=== PATIENT | female | born 1985 | race American Indian/Alaskan Native ===

== ENCOUNTER 2017-08-09 12:20 | Emergency (ER) | payer SELFPAY | END 2017-08-09 12:21 | disposition left against medical advice (07) | LOC: ED 12:20 | DX: R20.0 Anesthesia of skin (principal); Z53.21 Procedure and treatment not carried out due to patient leaving prior to being seen by health care provider ==

== ENCOUNTER 2018-11-02 21:16 | Emergency (ER) | payer MEDICAID ==
--- NOTE | 2018-11-02 21:47 | Event Note ---
ED Screening Note Date of service: 11/02/18 Time: 21:43 ED Screening Note: 33 y/o female come for N/V times 3 days. Pain in left lower abd LMP unsure. Ab3. This initial assessment/diagnostic orders/clinical plan/treatment(s) is/are subject to change based on patients health status, clinical progression and re- assessment by fellow clinical providers in the ED. Further treatment and workup at subsequent clinical providers discretion. Patient/guardian urged not to elope from the ED as their condition may be serious if not clinically assessed and managed. Initial orders include:
[2018-11-02] MEDS ORDERED: ZOFRAN ODT PO ONE (22:39)
[2018-11-02] MEDS ORDERED: IBUPROFEN PO ONE (22:39)
[2018-11-02 22:42] LABS: Bacteria,Urine 2+ /HPF (Negative); Bilirubin,Urine NEG (Negative); Blood,Urine LG (Negative); Color,Urine Yellow (Yellow); Mucus,Urine 3+ /HPF; Protein,Urine <15 mg/dL mg/dL (Negative); Urobilinogen,Urine < 2.0 mg/dL (<2.0)
--- NOTE | 2018-11-02 22:48 | Emergency Department Report ---
ED General Adult HPI - General Chief complaint: Abdominal Pain Stated complaint: N/V, LT ARM AND LEG NUMBNESS,FAINT Time Seen by Provider: 11/02/18 22:33 Source: patient Mode of arrival: Ambulatory Limitations: No Limitations - History of Present Illness Initial comments: Chiara is a very pleasant patient with multiple concerns. She is a healthy 33-year-old female who has had "paresthesias" since age 18. She was seen by several physicians including a neurologist. She was prescribed Neurontin for the symptoms age 19. However she stopped taking the medication due to involuntary movement. 2 years ago at age 31 the paresthesias returned. No fam nahed history of similar symptoms. For the past 3 days she's had nausea and vomiting. She also has had mild left lower quadrant pain. No vaginal bleeding. No fever. She did miss her menstrual cycle last month. She is followed at [facility]. Her last physical exam occurred 2 3 years ago. -: Gradual, days(s) (3), year(s) (2) Location: abdomen, left, right, upper extremity, lower extremity Consistency: intermittent, now resolved Improves with: none Worsens with: none Associated Symptoms: denies other symptoms - Related Data Previous Rx's Medication Instructions Recorded Last Taken Type Promethazine [Phenergan] 25 mg PO Q6HR PRN #10 tab 11/02/18 Unknown Rx Allergies Allergy/AdvReac Type Severity Reaction Status Date / Time methylprednisolone Allergy Unknown Verified 11/02/18 21:44 ED Review of Systems ROS: Stated complaint: N/V, LT ARM AND LEG NUMBNESS,FAINT Other details as noted in HPI Comment: All other systems reviewed and negative Constitutional: denies: fever, malaise Respiratory: denies: cough Cardiovascular: denies: chest pain ED Past Medical Hx - Past Medical History Previous Medical History?: Yes Hx Asthma: Yes - Surgical History Past Surgical History?: Yes Additional Surgical History: x4, 1 etopic - Family History Family history: hypertension, other (thyroid disease) - Social History Smoking Status: Never Smoker Substance Use Type: Alcohol, Marijuana - Medications Home Medications: Home Medications Medication Instructions Recorded Confirmed Last Taken Type Promethazine [Phenergan] 25 mg PO Q6HR PRN #10 tab 11/02/18 Unknown Rx ED Physical Exam - General Limitations: No Limitations General appearance: alert, in no apparent distress - Head Head exam: Present: atraumatic, normocephalic - Eye Eye exam: Present: normal appearance. Absent: scleral icterus, conjunctival injection - ENT ENT exam: Present: mucous membranes moist - Neck Neck exam: Present: normal inspection, full ROM - Respiratory Respiratory exam: Present: normal lung sounds bilaterally. Absent: respiratory distress, wheezes, rales, rhonchi - Cardiovascular Cardiovascular Exam: Present: regular rate, normal rhythm, normal heart sounds. Absent: systolic murmur, diastolic murmur, rubs, gallop - GI/Abdominal GI/Abdominal exam: Present: soft, normal bowel sounds. Absent: distended, tenderness, guarding, rebound - Extremities Exam Extremities exam: Present: normal inspection - Back Exam Back exam: Present: normal inspection - Neurological Exam Neurological exam: Present: alert, oriented X3, CN II-XII intact, normal gait. Absent: motor sensory deficit - Expanded Neurological Exam Expanded Patient oriented to: Present: person, place, time Speech: Present: fluid speech Cranial nerves: EOM's Intact: Normal, Gag Reflex: Normal Cerebellar function: Finger to Nose: Normal, Heel to [place]: Normal Upper motor neuron: [place] Neglect: Normal, Pronator Drift: Normal Sensory exam: Upper Extremity Light Touch: Normal Motor strength exam: RUE: 5, LUE: 5, RLE: 5, LLE: 5 Best Eye Response (Behzad): (4) open spontaneously Best Motor Response ([place]): (6) obeys commands Best Verbal Response ([place]): (5) oriented Behzad Total: 15 - Psychiatric Psychiatric exam: Present: normal affect, normal mood - Skin Skin exam: Present: warm, dry, intact, normal color. Absent: rash ED Course Vital Signs 11/02/18 21:43 Temperature 98.3 F Pulse Rate 98 H Respiratory 20 Rate Blood Pressure 115/47 O2 Sat by Pulse 98 Oximetry ED Medical Decision Making - Lab Data Result diagrams: 11/02/18 22:17 11/02/18 22:17 Laboratory Results - last 24 hr 11/02/18 11/02/18 11/02/18 21:56 22:17 22:17 WBC 8.6 RBC 3.33 L Hgb 11.4 Hct 33.2 MCV 100 H MCH 34 H MCHC 34 RDW 13.7 Plt Count 383 Lymph % (Auto) 32.6 [place] % (Auto) 7.1 Eos % (Auto) 0.5 Baso % (Auto) 0.6 Lymph # 2.8 [place] # 0.6 Eos # 0.0 Baso # 0.1 Seg Neutrophils % 59.2 Seg Neutrophils # 5.1 Sodium 136 L Potassium 3.8 Chloride 104.6 Carbon Dioxide 20 L Anion Gap 15 BUN 13 Creatinine 1.0 Estimated GFR > 60 BUN/Creatinine Ratio 13 Glucose 102 H Calcium 9.3 Total Bilirubin 0.20 AST 15 ALT 7 Alkaline Phosphatase 47 Total Protein 7.1 Albumin 4.1 Albumin/Globulin Ratio 1.4 Urine Color Yellow Urine Turbidity Cloudy Urine pH 6.0 Ur Specific [place] 1.026 Urine Protein <15 mg/dl Urine Glucose (UA) Neg Urine Ketones Tr Urine Blood Lg Urine Nitrite Pos Urine Bilirubin Neg Urine Urobilinogen < 2.0 Ur Leukocyte Esterase Tr Urine WBC (Auto) 14.0 H Urine RBC (Auto) 35.0 U Epithel Cells (Auto) 8.0 Urine Bacteria (Auto) 2+ Urine Mucus 3+ - Medical Decision Making 1. Paresthesias intermittently for the past 14+ years. Concern for metabolic versus connective tissue disease. Recommended evaluation by [facility] possible [facility]ological consultation referral. 2. Quadrant abdominal pain possible ovarian cysts no evidence of peritonitis. I do not suspect ovarian torsion. Serum test negative. 3. 3 days of nausea vomiting without active vomiting or nausea. No indication of severe emergent condition. Possible related to marijuana use. CBC chemistry was normal limits. Urinalysis contaminated. Patient does not have UTI symptoms. Given reassurance discharged home. Critical care attestation.: If time is entered above; I have spent that time in minutes in the direct care of this critically ill patient, excluding procedure time. ED Disposition Clinical Impression: Paresthesias, Acute abdominal pain, Nausea & vomiting Disposition: - TO HOME OR SELFCARE Is pt being admited?: No Does the pt Need Aspirin: No Condition: Stable Instructions: Abdominal Pain (ED) Prescriptions: Promethazine [Phenergan] 25 mg PO Q6HR PRN #10 tab PRN Reason: Nausea Referrals: ALEX MADISON MD [Primary Care Provider] - 3-5 Days Forms: Work/School Release Form(ED)
[2018-11-02 22:55] LABS: Basophils # (Auto) 0.1 K/mm3 (0.0-0.1); Basophils % (Auto) 0.6 % (0.0-1.8); Eosinophils % (Auto) 0.5 % (0.0-4.3); Hematocrit 33.2 % (30.3-42.9); Hemoglobin 11.4 gm/dl (10.1-14.3); Lymphocytes # (Auto) 2.8 K/mm3 (1.2-5.4); Lymphocytes % (Auto) 32.6 % (13.4-35.0); Mean Corpuscular HGB Conc 34 % (30-34); Mean Corpuscular Volume 100 fl (79-97); Monocytes # (Auto) 0.6 K/mm3 (0.0-0.8); Monocytes % (Auto) 7.1 % (0.0-7.3); Platelet Count 383 K/mm3 (140-440); Red Blood Count 3.33 M/mm3 (3.65-5.03); Red Cell Distribution Width 13.7 % (13.2-15.2)
[2018-11-02 23:15] LABS: Alanine Aminotransferase 7 units/L (7-56); Albumin 4.1 g/dL (3.9-5); BUN/Creatinine Ratio 13; Blood Urea Nitrogen 13 mg/dL (7-17); Calcium 9.3 mg/dL (8.4-10.2); Hemolysis Index 10
[2018-11-02 23:43] VITALS: BP 129/76
== END 2018-11-02 23:49 | disposition home or self-care (01) ==
LOC: ED 21:16
DX: R20.2 Paresthesia of skin (principal); R11.2 Nausea with vomiting, unspecified; R10.32 Left lower quadrant pain; J45.909 Unspecified asthma, uncomplicated; F12.10 Cannabis abuse, uncomplicated; Z79.899 Other long term (current) drug therapy; Z88.8 Allergy status to other drugs, medicaments and biological substances
CPT/HCPCS: 36415; 80053; 81001; 84702; 85025; 87076; 87086; 87186; Q0162

== ENCOUNTER 2019-05-17 11:29 | Outpatient (CLI) | payer MEDICAID ==
[2019-05-17 12:16] VITALS: BP 106/53
[2019-05-17 12:58] LABS: Bacteria,Urine 2+ /HPF (Negative); Bilirubin,Urine NEG (Negative); Blood,Urine SM (Negative); Color,Urine Yellow (Yellow); Mucus,Urine FEW /HPF; Protein,Urine <15 mg/dL mg/dL (Negative); Urobilinogen,Urine < 2.0 mg/dL (<2.0)
[2019-05-17 13:59] LABS: Amphetamine Screen,Urine PRESUMPTIVE NEGATIVE; Benzodiazepines Screen,Urine PRESUMPTIVE NEGATIVE; Cocaine Screen,Urine PRESUMPTIVE NEGATIVE; Methadone Screen,Urine PRESUMPTIVE NEGATIVE; Opiate Screen,Urine PRESUMPTIVE NEGATIVE
[2019-05-17 14:34] LABS: Cannabinoid Screen,Urine PRESUMPTIVE POSITIVE
== END 2019-05-17 12:50 | disposition home or self-care (01) ==
LOC: TRG 11:29
PROVIDERS: ATTEND Obstetrics & Gynecology
DX: O47.03 False labor before 37 completed weeks of gestation, third trimester (principal); Z3A.37 37 weeks gestation of pregnancy
CPT/HCPCS: 59025; 80307; 81001